=== PATIENT | male | born 1990 | race Hispanic/Latino ===

== ENCOUNTER 2021-09-25 04:49 | Emergency (ER) | payer BC ==
[2021-09-25] MEDS ORDERED: Ketorolac Tromethamine 30 MG/ML VIAL ONE (05:09)
== END 2021-09-25 05:58 | disposition home or self-care (01) ==
LOC: ERS 04:49
DX: S40.012A Contusion of left shoulder, initial encounter (principal); W19.XXXA Unspecified fall, initial encounter
CPT/HCPCS: 96372; J1885

== ENCOUNTER 2023-03-04 10:47 | Outpatient (CLI) | payer OTHER | END 2023-03-04 10:48 | disposition home or self-care (01) | LOC: SCSMRI 10:47 | PROVIDERS: ATTEND Family Medicine | DX: S89.92XD Unspecified injury of left lower leg, subsequent encounter (principal) ==